=== PATIENT | female | born 1970 | race American Indian/Alaskan Native ===

== ENCOUNTER 2017-07-26 10:24 | Emergency (ER) | payer SELFPAY ==
--- NOTE | 2017-07-26 10:54 | Emergency Department Report ---
Chief Complaint: Weakness Stated Complaint: TIRED/ MUSCLE SPASMS Time Seen by Provider: 07/26/17 10:51 - HPI History of Present Illness: Patient is a 47 y/o female who presents due to weakness and bodyaches x 1 day. Patient states that she sarted feeling this way since she started taking HTN medications HCTZ. Patient also c/o headache, she denies any chest pain or SOB. Patient denies any numbness or tingling. - ROS Review of Systems: bodyaches, fatigue, + headache, patient denies any chest pain or SOB - Exam Vital Signs: Vital Signs 07/26/17 10:38 Temperature 98.4 F Pulse Rate 95 H Respiratory 18 Rate Blood Pressure 143/94 O2 Sat by Pulse 98 Oximetry Physical Exam: no neurological focal deficits. MSE screening note: Focused history and physical exam performed. Due to findings the following was ordered:CBC, CMP, URINALYSIS ED Disposition for MSE Condition: Stable
[2017-07-26 11:10] LABS: Hemoglobin 14.7 gm/dl (10.1-14.3); Mean Corpuscular HGB Conc 33 % (30-34); Mean Corpuscular Hemoglobin 26 pg (28-32); Mean Corpuscular Volume 81 fl (79-97); Platelet Count 259 K/mm3 (140-440); Red Blood Count 5.57 M/mm3 (3.65-5.03); White Blood Count 7.1 K/mm3 (4.5-11.0)
[2017-07-26 11:30] LABS: Alanine Aminotransferase 30 units/L (7-56); Albumin 4.2 g/dL (3.9-5); Alkaline Phosphatase 64 units/L (35-129); Anion Gap 15 mmol/L; BUN/Creatinine Ratio 23; Blood Urea Nitrogen 18 mg/dL (7-17); Calcium 10.2 mg/dL (8.4-10.2); Carbon Dioxide 30 mmol/L (22-30); Chloride 97.8 mmol/L (98-107); Glucose 99 mg/dL (65-100); Potassium 4.3 mmol/L (3.6-5.0); Sodium 138 mmol/L (137-145); Total Protein 8.4 g/dL (6.3-8.2)
--- NOTE | 2017-07-26 11:40 | Emergency Department Report ---
ED General Adult HPI - General Chief complaint: Weakness Stated complaint: TIRED/ MUSCLE SPASMS Time Seen by Provider: 07/26/17 11:38 Source: patient, RN notes reviewed Mode of arrival: Ambulatory Limitations: No Limitations - History of Present Illness Initial comments: This is a 47-year-old female, the patient is previously unknown to this provider , does not have a primary care doctor, reports a past medical history of asthma , hypertension, multiple abdominal surgeries, including partial hysterectomy, left-sided oophorectomy, tubal ligation, fibroid removal. Patient presents to the ER with complaint of diffuse abdominal pressure and discomfort, pains in the right upper quadrant, left upper quadrant, bilateral flanks. Also complains of generalized leg, weakness, fatigue, also complains of bilateral lower extremity cramping. The symptoms; now for the past day or so. They're constant. They did not have exacerbating or relieving factors. To me, the patient does not complain of headache, she has no neck pain or neck stiffness, she has no bladder or bowel retention or incontinence, there is no saddle anesthesia, there is no recent surgeries, no recent trips greater than 4 hours, and no recent hospital admissions. -: Gradual Location: back, abdomen, left, right, lower extremity Quality: aching Consistency: intermittent Improves with: none Worsens with: none Associated Symptoms: loss of appetite, malaise, weakness. denies: confusion, cough, diaphoresis, fever/chills, shortness of breath, syncope - Related Data Previous Rx's Medication Instructions Recorded Last Taken Type Acetaminophen [Tylenol Arthritis] 650 mg PO Q6HR PRN #30 tablet.er 07/26/17 Unknown Rx Ibuprofen [Motrin] 600 mg PO Q8H PRN #30 tablet 07/26/17 Unknown Rx Ondansetron [Zofran Odt] 4 mg PO Q8HR PRN #20 tab.rapdis 07/26/17 Unknown Rx Allergies Allergy/AdvReac Type Severity Reaction Status Date / Time No Known Allergies Allergy Unverified 07/26/17 10:48 ED Review of Systems ROS: Stated complaint: TIRED/ MUSCLE SPASMS Other details as noted in HPI Constitutional: malaise, weakness Eyes: denies: vision change ENT: denies: epistaxis Respiratory: denies: cough Cardiovascular: denies: syncope Gastrointestinal: abdominal pain Genitourinary: denies: dysuria Musculoskeletal: back pain, arthralgia, myalgia Skin: denies: lesions Neurological: weakness ED Past Medical Hx - Past Medical History Hx Hypertension: Yes Hx Asthma: Yes - Surgical History Additional Surgical History: 2006 Partial hystorectomy,. 2009 ovary removed ( left) and scare tissue removed. 1991 tublulation, 1994 fibroids removed. - Medications Home Medications: Home Medications Medication Instructions Recorded Confirmed Last Taken Type Acetaminophen [Tylenol Arthritis] 650 mg PO Q6HR PRN #30 tablet.er 07/26/17 Unknown Rx Ibuprofen [Motrin] 600 mg PO Q8H PRN #30 tablet 07/26/17 Unknown Rx Ondansetron [Zofran Odt] 4 mg PO Q8HR PRN #20 tab.rapdis 07/26/17 Unknown Rx ED Physical Exam - General Limitations: No Limitations General appearance: alert, in no apparent distress, obese - Head Head exam: Present: atraumatic, normocephalic - Eye Eye exam: Present: normal appearance, EOMI. Absent: nystagmus - ENT ENT exam: Present: normal exam, normal orophraynx, mucous membranes moist, normal external ear exam - Neck Neck exam: Present: normal inspection, full ROM. Absent: tenderness, meningismus - Respiratory Respiratory exam: Present: normal lung sounds bilaterally. Absent: respiratory distress, wheezes, rales, rhonchi, stridor, chest wall tenderness, accessory muscle use, decreased breath sounds, prolonged expiratory - Cardiovascular Cardiovascular Exam: Present: regular rate, normal rhythm, normal heart sounds. Absent: bradycardia, tachycardia, irregular rhythm, systolic murmur, diastolic murmur, rubs, gallop - GI/Abdominal GI/Abdominal exam: Present: soft, normal bowel sounds. Absent: distended, tenderness, guarding, rebound, rigid, pulsatile mass - Extremities Exam Extremities exam: Present: normal inspection (during the extremity examination, escorted by nurse araceli stark), full ROM, normal capillary refill, other (the compartments are soft, there is no redness, pus or streaking, there is no palpable cord in her thighs are nontender, lower extremities are nontender.). Absent: pedal edema, joint swelling, calf tenderness - Back Exam Back exam: Present: normal inspection, full ROM. Absent: CVA tenderness (L), muscle spasm, paraspinal tenderness, vertebral tenderness - Neurological Exam Neurological exam: Present: alert, oriented X3, normal gait, other (Extraocular movements intact. Tongue midline. No facial droop. Facial sensation intact to light touch in the V1, V2, V3 distribution bilaterally. 5 and 5 strength in 4 extremities.. Sensation is intact to light touch in 4 extremities.). Absent : motor sensory deficit - Psychiatric Psychiatric exam: Present: normal affect, normal mood - Skin Skin exam: Present: warm, dry, intact, normal color. Absent: rash ED Course Vital Signs 07/26/17 07/26/17 07/26/17 10:38 13:06 13:15 Temperature 98.4 F Pulse Rate 95 H Respiratory 18 16 Rate Blood Pressure 143/94 130/85 O2 Sat by Pulse 98 97 Oximetry 07/26/17 07/26/17 07/26/17 13:16 13:30 13:46 Temperature Pulse Rate 94 H 79 98 H Respiratory 27 H 11 L 22 Rate Blood Pressure 130/85 132/84 132/84 O2 Sat by Pulse 99 98 91 Oximetry 07/26/17 07/26/17 07/26/17 14:24 16:44 17:00 Temperature Pulse Rate 75 74 Respiratory 12 10 L 20 Rate Blood Pressure 130/85 126/87 128/82 O2 Sat by Pulse 99 93 Oximetry - Reevaluation(s) Reevaluation #1: 07/26/17 14:32 Differential diagnosis: Colitis, diverticulitis, bowel obstruction, urinary tract infection, DVT Assessment and plan: 47-year-old female with diffuse abdominal cramping and discomfort, multiple abdominal surgeries, markedly obese, no abdominal tenderness, no pulmonary embolus or DVT risk factors, low risk by well's criteria, d-dimer negative, perc negative, no clinical indication of compartment syndrome, CK within normal limits, no pain with passive range of motion of the lower extremities, duplex study negative for DVT. Laboratory studies unremarkable, highly doubt acute disease or pathology, CT scan of the abdomen and pelvis pending, EKG is pending, patient to be treated symptomatically. 07/26/17 14:33 Reevaluation #2: 07/26/17 15:51 Patient feeling somewhat improved. CT scan negative for acute disease. EKG obtained, not morphologically consistent with STEMI, but demonstrates diffuse T- wave abnormalities. Patient has been having symptoms for a few days to almost a week. Symptoms very atypical for acute coronary syndrome, including bilateral flank and abdominal pain, leg cramping. There is no substernal chest pain, shortness of breath, nausea, vomiting, d diaphoresis. Low risk by MECCA score, low risk by heart score. We will repeat EKG, and repeat second troponin. 07/26/17 15:55 Reevaluation #3: 07/26/17 17:13 Troponin negative 2. Vital signs remained stable. Patient appears more comfortable. Symptoms have been going on for multiple days. Repeat EKG is abnormal but unchanged from prior. Case, vital signs, EKG, laboratory studies presented and discussed with consulting cardiology, Dr. Queen, who agrees the patient is suitable to follow up as an outpatient for her abnormal EKG. He requested the patient follow-up with him in the office later on this week. Patient will be discharged with nonicteric chronic pain medication, instructions to follow up with outpatient cardiology, patient also given a business card of the leadership intern, return precautions are reviewed ED Medical Decision Making - Lab Data Result diagrams: 07/26/17 10:55 07/26/17 10:55 Vital Signs 07/26/17 07/26/17 07/26/17 10:38 13:06 13:15 Temperature 98.4 F Pulse Rate 95 H Respiratory 18 16 Rate Blood Pressure 143/94 130/85 O2 Sat by Pulse 98 97 Oximetry 07/26/17 07/26/17 07/26/17 13:16 13:30 13:46 Temperature Pulse Rate 94 H 79 98 H Respiratory 27 H 11 L 22 Rate Blood Pressure 130/85 132/84 132/84 O2 Sat by Pulse 99 98 91 Oximetry Lab Results 07/26/17 07/26/17 07/26/17 Range/Units 10:55 10:55 10:55 WBC 7.1 (4.5-11.0) K/mm3 RBC 5.57 H (3.65-5.03) M/mm3 Hgb 14.7 H (10.1-14.3) gm/dl Hct 45.0 H (30.3-42.9) % MCV 81 (79-97) fl MCH 26 L (28-32) pg MCHC 33 (30-34) % RDW 14.0 (13.2-15.2) % Plt Count 259 (140-440) K/mm3 Add Manual Diff Complete Total Counted 100 Seg Neutrophils % Furnace Reliner Seg Neuts % (Manual) 31.0 L (40.0-70.0) % Band Neutrophils % 0 % Lymphocytes % (Manual) 61.0 H (13.4-35.0) % Reactive Lymphs % (Man) 3.0 % Monocytes % (Manual) 3.0 (0.0-7.3) % Eosinophils % (Manual) 1.0 (0.0-4.3) % Basophils % (Manual) 1.0 (0.0-1.8) % Metamyelocytes % 0 % Myelocytes % 0 % Promyelocytes % 0 % Blast Cells % 0 % Nucleated RBC % Not Reportable Seg Neutrophils # Man 2.2 (1.8-7.7) K/mm3 Band Neutrophils # 0.0 K/mm3 Lymphocytes # (Manual) 4.3 (1.2-5.4) K/mm3 Abs React Lymphs (Man) 0.2 K/mm3 Monocytes # (Manual) 0.2 (0.0-0.8) K/mm3 Eosinophils # (Manual) 0.1 (0.0-0.4) K/mm3 Basophils # (Manual) 0.1 (0.0-0.1) K/mm3 Metamyelocytes # 0.0 K/mm3 Myelocytes # 0.0 K/mm3 Promyelocytes # 0.0 K/mm3 Blast Cells # 0.0 K/mm3 WBC Morphology Not Reportable Hypersegmented Neuts Not Reportable Hyposegmented Neuts Not Reportable Hypogranular Neuts Not Reportable Smudge Cells Not Reportable Toxic Granulation Not Reportable Toxic Vacuolation Not Reportable Dohle Bodies Not Reportable Pelger-Huet Anomaly Not Reportable Brii Rods Not Reportable Platelet Estimate Cons Clumped Platelets Not Reportable Plt Clumps, EDTA Not Reportable Large Platelets Not Reportable Giant Platelets Not Reportable Platelet Satelliting Not Reportable Plt Morphology Comment Not Reportable RBC Morphology Normal Dimorphic RBCs Not Reportable Polychromasia Not Reportable Hypochromasia Not Reportable Poikilocytosis Not Reportable Anisocytosis Not Reportable Microcytosis Not Reportable Macrocytosis Not Reportable Spherocytes Not Reportable Pappenheimer Bodies Not Reportable Sickle Cells Not Reportable Target Cells Not Reportable Tear Drop Cells Not Reportable Ovalocytes Not Reportable Helmet Cells Not Reportable [place] Bodies Not Reportable [place] Rings Not Reportable [place] Cells Not Reportable Bite Cells Not Reportable Crenated Cell Not Reportable Elliptocytes Not Reportable Acanthocytes (Spur) Not Reportable Rouleaux Not Reportable Hemoglobin C Crystals Not Reportable Schistocytes Not Reportable Malaria parasites Not Reportable Alo Bodies Not Reportable Hem Pathologist Commnt No PT (12.2-14.9) Sec. INR (0.87-1.13) APTT (24.2-36.6) Sec. D-Dimer (0-234) ng/mlDDU Sodium 138 (137-145) mmol/L Potassium 4.3 (3.6-5.0) mmol/L Chloride 97.8 L (98-107) mmol/L Carbon Dioxide 30 (22-30) mmol/L Anion Gap 15 mmol/L BUN 18 H (7-17) mg/dL Creatinine 0.8 (0.7-1.2) mg/dL Estimated GFR > 60 ml/min BUN/Creatinine Ratio 23 % Glucose 99 (65-100) mg/dL Calcium 10.2 (8.4-10.2) mg/dL Magnesium 2.10 (1.7-2.3) mg/dL Total Bilirubin 0.60 (0.1-1.2) mg/dL AST 19 (5-40) units/L ALT 30 (7-56) units/L Alkaline Phosphatase 64 (35-129) units/L Total Creatine Kinase 193 H (30-135) units/L Total Protein 8.4 H (6.3-8.2) g/dL Albumin 4.2 (3.9-5) g/dL Albumin/Globulin Ratio 1.0 % Urine Color (Yellow) Urine Turbidity (Clear) Urine pH (5.0-7.0) Ur Specific [place] (1.003-1.030) Urine Protein (Negative) mg/dL Urine Glucose (UA) (Negative) mg/dL Urine Ketones (Negative) mg/dL Urine Blood (Negative) Urine Nitrite (Negative) Urine Bilirubin (Negative) Urine Urobilinogen (<2.0) mg/dL Ur Leukocyte Esterase (Negative) Urine WBC (Auto) (0.0-6.0) /HPF Urine RBC (Auto) (0.0-6.0) /HPF U Epithel Cells (Auto) (0-13.0) /HPF Urine Mucus /HPF Urine HCG, Qual (Negative) 07/26/17 07/26/17 Range/Units 11:25 13:37 WBC (4.5-11.0) K/mm3 RBC (3.65-5.03) M/mm3 Hgb (10.1-14.3) gm/dl Hct (30.3-42.9) % MCV (79-97) fl MCH (28-32) pg MCHC (30-34) % RDW (13.2-15.2) % Plt Count (140-440) K/mm3 Add Manual Diff Total Counted Seg Neutrophils % Seg Neuts % (Manual) (40.0-70.0) % Band Neutrophils % % Lymphocytes % (Manual) (13.4-35.0) % Reactive Lymphs % (Man) % Monocytes % (Manual) (0.0-7.3) % Eosinophils % (Manual) (0.0-4.3) % Basophils % (Manual) (0.0-1.8) % Metamyelocytes % % Myelocytes % % Promyelocytes % % Blast Cells % % Nucleated RBC % Seg Neutrophils # Man (1.8-7.7) K/mm3 Band Neutrophils # K/mm3 Lymphocytes # (Manual) (1.2-5.4) K/mm3 Abs React Lymphs (Man) K/mm3 Monocytes # (Manual) (0.0-0.8) K/mm3 Eosinophils # (Manual) (0.0-0.4) K/mm3 Basophils # (Manual) (0.0-0.1) K/mm3 Metamyelocytes # K/mm3 Myelocytes # K/mm3 Promyelocytes # K/mm3 Blast Cells # K/mm3 WBC Morphology Hypersegmented Neuts Hyposegmented Neuts Hypogranular Neuts Smudge Cells Toxic Granulation Toxic Vacuolation Dohle Bodies Pelger-Huet Anomaly Brii Rods Platelet Estimate Clumped Platelets Plt Clumps, EDTA Large Platelets Giant Platelets Platelet Satelliting Plt Morphology Comment RBC Morphology Dimorphic RBCs Polychromasia Hypochromasia Poikilocytosis Anisocytosis Microcytosis Macrocytosis Spherocytes Pappenheimer Bodies Sickle Cells Target Cells Tear Drop Cells Ovalocytes Helmet Cells [place] Bodies [place] Rings [place] Cells Bite Cells Crenated Cell Elliptocytes Acanthocytes (Spur) Rouleaux Hemoglobin C Crystals Schistocytes Malaria parasites Alo Bodies Hem Pathologist Commnt PT 13.5 (12.2-14.9) Sec. INR 0.98 (0.87-1.13) APTT 29.1 (24.2-36.6) Sec. D-Dimer 226.46 (0-234) ng/mlDDU Sodium (137-145) mmol/L Potassium (3.6-5.0) mmol/L Chloride (98-107) mmol/L Carbon Dioxide (22-30) mmol/L Anion Gap mmol/L BUN (7-17) mg/dL Creatinine (0.7-1.2) mg/dL Estimated GFR ml/min BUN/Creatinine Ratio % Glucose (65-100) mg/dL Calcium (8.4-10.2) mg/dL Magnesium (1.7-2.3) mg/dL Total Bilirubin (0.1-1.2) mg/dL AST (5-40) units/L ALT (7-56) units/L Alkaline Phosphatase (35-129) units/L Total Creatine Kinase (30-135) units/L Total Protein (6.3-8.2) g/dL Albumin (3.9-5) g/dL Albumin/Globulin Ratio % Urine Color Yellow (Yellow) Urine Turbidity Clear (Clear) Urine pH 5.0 (5.0-7.0) Ur Specific [place] 1.014 (1.003-1.030) Urine Protein <15 mg/dl (Negative) mg/dL Urine Glucose (UA) Neg (Negative) mg/dL Urine Ketones Neg (Negative) mg/dL Urine Blood Neg (Negative) Urine Nitrite Neg (Negative) Urine Bilirubin Neg (Negative) Urine Urobilinogen < 2.0 (<2.0) mg/dL Ur Leukocyte Esterase Neg (Negative) Urine WBC (Auto) 2.0 (0.0-6.0) /HPF Urine RBC (Auto) 1.0 (0.0-6.0) /HPF U Epithel Cells (Auto) 3.0 (0-13.0) /HPF Urine Mucus Few /HPF Urine HCG, Qual Negative (Negative) - EKG Data -: EKG Interpreted by [place] - EKG Data When compared to previous EKG there are: previous EKG unavailable 07/26/17 15:52 Normal sinus, 68 bpm, normal axis, normal intervals, not morphologically consistent with STEMI, diffuse T-wave abnormalities, not morphologically consistent with STEMI - Radiology Data Radiology results: pending, report reviewed, image reviewed LIVE [facility] [address] Female : 1970 [facility]# [id number] 07/26/17 14:25 - Radiology Dept. 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 ED Disposition Clinical Impression: Leg cramps, Abdominal cramps, Abnormal EKG Disposition: - TO HOME OR SELFCARE Is pt being admited?: No Does the pt Need Aspirin: No Condition: Stable Additional Instructions: Take the pain medications, nausea medications as needed/directed. Follow up with the primary care doctor within the next [address] Vang is a local primary care doctor. Please note that EKG showed nonspecific abnormalities, and this should be followed up by a primary care doctor or leadership intern within the next week. i have discussed her case with the leadership intern on-call, Dr. Paredes, and he would like to see you in the office within the next week. Take the pain medication, nausea medication as directed, return to the ER right away with new pain, worsened pain, migration of pain, fevers, chills, intractable nausea or vomiting, confusion, inability to tolerate liquid feeds, new, worsening or different symptoms. Prescriptions: Acetaminophen [Tylenol Arthritis] 650 mg PO Q6HR PRN #30 tablet.er PRN Reason: Pain Ibuprofen [Motrin] 600 mg PO Q8H PRN #30 tablet PRN Reason: Pain Ondansetron [Zofran Odt] 4 mg PO Q8HR PRN #20 tab.rapdis PRN Reason: Nausea Referrals: PRIMARY CARE, [Primary Care Provider] - 3-5 Days ANGELA GARSIA MD [Staff Physician] - 3-5 Days BRENDA VANG MD [Staff Physician] - 3-5 Days Forms: Work/School Release Form(ED)
[2017-07-26 11:52] LABS: Bilirubin,Urine NEG (Negative); Blood,Urine NEG (Negative); Ketones,Urine NEG (Negative); Leukocyte Esterase,Urine NEG (Negative); Mucus,Urine FEW /HPF; Nitrite,Urine NEG (Negative); Protein,Urine <15 mg/dL mg/dL (Negative); Urobilinogen,Urine < 2.0 mg/dL (<2.0)
[2017-07-26 12:22] LABS: Magnesium 2.1 mg/dL (1.7-2.3)
[2017-07-26 12:34] LABS: Blastocytes % (Manual) 0 %; Diff Status Complete; RBC Morphology Normal
[2017-07-26 12:35] LABS: Platelet Estimate Cons
[2017-07-26] MEDS ORDERED: NACL 0.9% 1000 ML 1,000 ML IV ONE (13:29)
[2017-07-26] MEDS ORDERED: TORADOL IV ONE (13:29)
[2017-07-26 14:02] LABS: INR 0.98 (0.87-1.13)
[2017-07-26 14:03] LABS: Partial Thromboplastin Time 29.1 Sec. (24.2-36.6)
[2017-07-26] MEDS ORDERED: BENTYL PO ONE (14:34)
[2017-07-26] MEDS ORDERED: ALUM-MAG HYDROX-SIMETH 200-200-20MG/5ML PO ONE (14:34)
[2017-07-26] MEDS ORDERED: CARAFATE PO ONE (14:34)
[2017-07-26] MEDS ORDERED: PEPCID IV ONE (14:34)
--- NOTE | 2017-07-26 15:26 | Cat Scan Report ---
CT SCAN OF THE ABDOMEN AND PELVIS WITH CONTRAST: HISTORY: Diffuse abdominal pain. TECHNIQUE: Helical CT in 1.25mm intervals following IV contrast. Sagittal and coronal reconstructions. FINDINGS: The liver is normal in size and is without focal defect. No gallstones or biliary dilatation are noted. The spleen and pancreas demonstrate a normal size and attenuation with no evidence of abnormal mass. The kidneys are normal in size and position with no evidence of hydronephrosis or mass. The adrenal glands are normal. There is no intestinal obstruction or ascites. The abdominal aorta is normal. Hysterectomy and appendectomy changes are suspected. Correlate with history. There is no evidence of peritoneal air or fluid. There is no evidence of any abnormal masses or fluid collections within the pelvis. No adenopathy is identified. The bladder is normal. A small ventral wall defect is identified superior to the umbilicus with a 1 cm neck. A small amount of omentum is seen within IMPRESSION: No acute abdominal process. Surgical changes as described. Small ventral wall defect containing fat.
--- NOTE | 2017-07-26 16:09 | Vascular Lab Report ---
LOWER EXTREMITY VENOUS DUPLEX: REASON FOR EXAM: Pain of the lower extremities. COMMENTS ON THE RIGHT: All veins visualized are freely compressible without evidence of internal echogenicity. Flow is spontaneous and phasic throughout. COMMENTS ON THE LEFT: All veins visualized are freely compressible without evidence of internal echogenicity. Flow is spontaneous and phasic throughout. IMPRESSION: No evidence of acute or chronic deep venous thrombosis in either lower extremity.
[2017-07-26 17:33] VITALS: BP 128/82
== END 2017-07-26 17:33 | disposition home or self-care (01) ==
LOC: ED 10:24
DX: R10.84 Generalized abdominal pain (principal); R53.1 Weakness; I10 Essential (primary) hypertension; M79.605 Pain in left leg; M79.604 Pain in right leg
CPT/HCPCS: 36415; 74177; 80053; 81001; 81025; 82550; 83735; 84484; 85007; 85025; 85379; 85610; 85730; 93005; 93010; 93970; 96361; 96374; 99284; J1885; J7030; Q9967